=== PATIENT | female | born 1950 | race Caucasian/White ===

== ENCOUNTER 2021-03-05 20:10 | Inpatient (IN) | payer MEDICARE, BC ==
[~2021-03-05] VITALS: Ht 162.6 cm; Wt 61.2 kg
--- NOTE | 2021-03-05 20:15 | NUR ---
PT BIB [facility] FROM HOME C/O ABD PAIN AFTER RECIEIVING BOOSTER SHOT FOR COVID VACCINE 2 DAYS AGO. A.SO C/O N/V 2 HRS SKETCHER WITH 10 EPSIODES OF VOMITTING. ZOFRAN PO GIVEN BY PARAMEDICS. A/O X4, NO SOB OR LABORED BREATHING, AFEBRILE. DENIES CP/PRESSURE. DR. TRIPP AT BEDSIDE, MSE IN PROGRESS.
[2021-03-05] MEDS ORDERED: IV NORMAL SALINE 1000 ML BAG IV ONE (20:30)
[2021-03-05] MEDS ORDERED: HYDROMORPHONE 1 MG/1 ML DISP.SYRIN IV ONE (20:30)
[2021-03-05] MEDS ORDERED: ONDANSETRON 4 MG/2 ML VIAL IV ONE (20:30)
--- NOTE | 2021-03-05 20:34 | NUR ---
XRAY AT BEDSIDE.
[2021-03-05 20:37] LABS: HEMATOCRIT 42.7 % (31.2-41.9); MEAN CORPUSCULAR HEMOGLOBIN 29.6 uug (24.7-32.8); MEAN CORPUSCULAR VOLUME 87.3 fL (75.5-95.3); PLATELET COUNT (AUTO) 232 K/uL (179-408)
[2021-03-05] MEDS ORDERED: HYDROMORPHONE 1 MG/1 ML DISP.SYRIN ONE (20:38)
[2021-03-05] MEDS ORDERED: ONDANSETRON 4 MG/2 ML VIAL ONE (20:38)
[2021-03-05 21:01] LABS: BILIRUBIN,DIRECT 0.1 mg/dL (0.0-0.2); BILIRUBIN,TOTAL 0.6 mg/dL (0.2-1.0); TOTAL PROTEIN, SERUM 7.3 g/dL (6.4-8.2)
[2021-03-05] MEDS ORDERED: LORAZEPAM 2 MG/1 ML VIAL ONE (21:09)
[2021-03-05] MEDS ORDERED: IOHEXOL 300MG/ML 100 ML INFUS..BTL ONE (21:12)
[2021-03-05] MEDS ORDERED: SWABABLE VALVE TRANSFER SET EA MC ONE (21:12)
[2021-03-05] MEDS ORDERED: IV NORMAL SALINE 250 ML IV ONE (21:12)
[2021-03-05] MEDS ORDERED: LORAZEPAM 2 MG/1 ML VIAL IV ONE (21:15)
--- NOTE | 2021-03-05 21:16 | NUR ---
PT TAKEN DOWN FOR CT.
--- NOTE | 2021-03-05 21:33 | NUR ---
PT RETURNED FROM CT STABLE CONDITION.
[2021-03-05] MEDS ORDERED: fluoxetine PO (21:43)
[2021-03-05] MEDS ORDERED: OLME40TA12 PO (21:43)
[2021-03-05] MEDS ORDERED: PIPERACILLIN SODIUM/TAZOBACTAM 3.375 G in IV DEXTROSE 5% 50 ML IV ONE (22:00)
[2021-03-05] MEDS ORDERED: PIPERACILLIN/TAZOBACTAM/D5W 50 ML IV ONE (22:06)
--- NOTE | 2021-03-05 22:06 | NUR ---
CALLED DR. ANTWON COATES LAMINATOR [employer] SURGEON, SPOKE WITH DR. TRIPP.
--- NOTE | 2021-03-05 22:45 | NUR ---
US (ISRRAEL) AT BEDSIDE.
--- NOTE | 2021-03-05 22:56 | NUR ---
CALLED [facility] FOR PANEL CALL, PAGED DR. APPLE.
[2021-03-05] MEDS ORDERED: MORPHINE SULFATE 2 MG/1 ML DISP.SYRIN IV PRN (23:15)
[2021-03-05] MEDS ORDERED: Z GUARD REMEDY PASTE 57 GM TUBE TOP PRN (23:15)
[2021-03-05] MEDS ORDERED: MAGNESIUM HYDROXIDE 30 ML LIQUID UDC PO PRN (23:15)
--- NOTE | 2021-03-05 23:45 | NUR ---
GAVE REPORT TO JUVENCIO, MED SURG FLOOR.
--- NOTE | 2021-03-05 23:59 | NUR ---
Pt. admitted to Med Surg Room 329B , under care of ROCÍO Rosario. Dx: appendicitis Belongs List completed
--- NOTE | 2021-03-06 00:12 | NUR ---
Admitted patient in Med-surg unit from Er via [facility] accompanied by staff nurse. Dx of acute appendicitis.Patient AALO4.No s/s of distress noted. On Ra.Iv on left AC patent and intact.Patient has h/x of left breast CA s/p LF mastectomy 10 yrs ago per patient. According to ER nurse , ok to adm medication on the left IV .Patient aware Per patient as long as no lab draw done on the left arm.Patient NPO. Adm IVF.Tolerated well. VSs .Will continue to monitor.
[2021-03-06 00:21] VITALS: BP 119/49
[2021-03-06] MEDS: IV D5 1/2 NS 1000 ML 1,000 ML IV PRN (00:54)
[2021-03-06] MEDS: ONDANSETRON 4 MG/2 ML VIAL IV PRN ×3 (01:10→17:23)
[2021-03-06] MEDS ORDERED: PIPERACILLIN SODIUM/TAZOBACTAM 3.375 G in IV DEXTROSE 5% 50 ML IV SCH ×2 (04:00→12:00)
[2021-03-06] MEDS ORDERED: PIPERACILLIN/TAZOBACTAM/D5W 50 ML IV ONE (04:12)
[2021-03-06 04:30] VITALS: BP 107/48
[2021-03-06 07:24] LABS: HEMATOCRIT 38.3 % (31.2-41.9); MEAN CORPUSCULAR HEMOGLOBIN 29.9 uug (24.7-32.8); MEAN CORPUSCULAR VOLUME 89.1 fL (75.5-95.3); PLATELET COUNT (AUTO) 211 K/uL (179-408)
--- NOTE | 2021-03-06 07:30 | NUR ---
Kept pt NPO for possible surgery today. Pt agreeable with staying NPO. IVF infusing as ordered. Call light is within reach. PT states that she gets pain on right lower quadrant. ABD bowel sounds hypoactive.
[2021-03-06 07:48] LABS: PHOSPHOROUS 3.6 mg/dL (2.5-4.9)
[2021-03-06] MEDS: PANTOPRAZOLE SODIUM 40 MG VIAL IV SCH (08:11)
[2021-03-06] MEDS: MORPHINE SULFATE 4 MG/1 ML DISP.SYRIN IV PRN ×2 (08:18→19:57)
[2021-03-06 08:39] LABS: THYROID STIMULATING HORMONE 1.004 mIU/mL (0.358-3.740)
[2021-03-06 08:53] VITALS: BP 109/50
[2021-03-06 09:05] LABS: *BILIRUBIN,URIN NEGATIVE (NEGATIVE); *BLOOD, URINE NEGATIVE (NEGATIVE); *CLARITY,URINE SLIGHTLY CLOUDY (CLEAR); *COLOR,URINE YELLOW (YELLOW); *KETONES,URINE TRACE (NEGATIVE); *UROBILINOGEN,URINE 0.2 E.U./dl (NORMAL); LEUKOCYTE ESTERASE ,URINE NEGATIVE (NEGATIVE); NITRITE, URINE NEGATIVE (NEGATIVE); UGLUCOSE NEGATIVE (NEGATIVE)
[2021-03-06] MEDS ORDERED: POLYMYXIN B SULFATE 500,000 UNITS VIAL ONE (10:01)
[2021-03-06] MEDS ORDERED: LIDOCAINE HCL 1% 20 ML VIAL ONE (10:01)
[2021-03-06] MEDS ORDERED: BUPIVACAINE/EPI PF 0.25% 30 ML VIAL ONE (10:02)
--- NOTE | 2021-03-06 10:30 | NUR ---
Preop checklist done, consent signed, and surgery here to roll picker patient.
[2021-03-06] MEDS ORDERED: FENTANYL CITRATE 250 MCG/5 ML AMPUL ONE (10:36)
[2021-03-06] MEDS ORDERED: MIDAZOLAM HCL 2 MG/2 ML VIAL ONE (10:36)
[2021-03-06] MEDS ORDERED: ROCURONIUM BROMIDE 50 MG/5 ML VIAL ONE (10:37)
[2021-03-06] MEDS ORDERED: HYDROMORPHONE 2 MG/1 ML DISP.SYRIN ONE (10:37)
[2021-03-06 13:17] VITALS: BP 105/48
[2021-03-06] MEDS: PIPERACILLIN SODIUM/TAZOBACTAM 3.375 G in IV DEXTROSE 5% 100 ML IV SCH ×2 (13:20→19:57)
--- NOTE | 2021-03-06 13:30 | NUR ---
Received pt back from surgery/recovery. Pt awake alert and oriented. Pt able to wiggle toes and feel sensation on feet. Pt denies any c/o pain. ABD x 3 small laparoscopic incision with steri strips. Ice pack on ABD. IV on right FA #18 with IVF as ordered. Bowel sounds hypoactive. Encouraged pt to use IS x 10 WA. PT verbalized understanding. Call light is within reach.
[2021-03-06 14:11] LABS: BACTERIA,URINE FEW /HPF (NONE SEEN); RBC,URINE 0-3 /HPF (0-3); SQUAMOUS EPITHELIAL CELL,UR FEW /HPF (NONE SEEN); WBC,URINE 0-3 /HPF (0-3)
[2021-03-06 15:28] VITALS: BP 108/55
[2021-03-06] MEDS ORDERED: DEXAMETHASONE SOD PHOSPHATE 4 MG INJ IV ONE (16:59)
[2021-03-06] MEDS ORDERED: GLYCOPYRROLATE 0.2 MG/ML VIAL MC ONE (16:59)
[2021-03-06] MEDS ORDERED: PROPOFOL 200 MG/20 ML BOTTLE IV ONE (16:59)
[2021-03-06] MEDS ORDERED: METOCLOPRAMIDE HCL 10 MG/2 ML VIAL IV ONE (16:59)
[2021-03-06] MEDS ORDERED: CEFAZOLIN 1 G VIAL MC ONE (16:59)
[2021-03-06] MEDS ORDERED: ONDANSETRON 4 MG/2 ML VIAL IV ONE (16:59)
[2021-03-06] MEDS ORDERED: NEOSTIGMINE METHYLSULFATE 10 MG/10 ML VIAL IM ONE (16:59)
[2021-03-06] MEDS ORDERED: SEVOFLURANE 250 ML BOTTLE IH ONE (16:59)
[2021-03-06] MEDS ORDERED: LIDOCAINE-MPF 2% 5 ML VIAL MC ONE (16:59)
[2021-03-06] MEDS ORDERED: VECURONIUM BROMIDE 10 MG VIAL IV ONE (16:59)
--- NOTE | 2021-03-06 22:00 | NUR ---
Received patient in bed, alert and oriented. Able make needs known. Denies passing gas at this time. IV intact. Handoff report to Karri URIBE.
[2021-03-06 22:15] VITALS: BP 108/49
--- NOTE | 2021-03-06 23:00 | NUR ---
assumed care from Nurse Drummond; agree with previous assessment.
[2021-03-07] MEDS: IV D5 1/2 NS 1000 ML 1,000 ML IV PRN (01:00)
[2021-03-07] MEDS: ONDANSETRON 4 MG/2 ML VIAL IV PRN ×4 (01:15→22:29)
[2021-03-07] MEDS: MORPHINE SULFATE 4 MG/1 ML DISP.SYRIN IV PRN (01:15)
[2021-03-07 04:15] VITALS: BP 105/52
[2021-03-07] MEDS: PIPERACILLIN SODIUM/TAZOBACTAM 3.375 G in IV DEXTROSE 5% 100 ML IV SCH ×3 (04:15→22:30)
[2021-03-07] MEDS: ACETAMINOPHEN 325 MG TABLET PO PRN ×3 (05:40→19:53)
--- NOTE | 2021-03-07 06:30 | NUR ---
Patient rested well in between care; pain management with Morphine AND TYLENOL; ZOFRAN FOR NAUSEA; ONGOING IVF; ANTIBIOTICS; ASSISTED TO BATHROOM'; pt reported she passed gas; continue to monitor.
--- NOTE | 2021-03-07 06:47 | NUR ---
referred to DR Gonzalez for resumption of Prozac and klonopin 0.5 mg q8 prn; awaiting call back.
--- NOTE | 2021-03-07 08:30 | NUR ---
patient received laying in bed in no apparent distress, states feeling nauseous prn zofran administered. patient denies pain at this time, request ice pack to place around incision area, ice pack given to patient. patient with side rails up x2, call light within reach. v/s wnl.
[2021-03-07] MEDS: PANTOPRAZOLE SODIUM 40 MG VIAL IV SCH (08:32)
[2021-03-07] MEDS ORDERED: CLONAZEPAM 0.5 MG TABLET PO PRN (09:30)
[2021-03-07] MEDS ORDERED: MORPHINE SULFATE 2 MG/1 ML DISP.SYRIN IV PRN (10:30)
[2021-03-07] MEDS: FLUOXETINE HCL 20 MG CAPSULE PO SCH (10:32)
[2021-03-07] MEDS ORDERED: diphenhydrAMINE 50 MG/1 ML VIAL IV PRN (11:30)
[2021-03-07 12:00] VITALS: BP 116/50
--- NOTE | 2021-03-07 13:15 | NUR ---
patient ambulated with physical therapy. tolerated well, denies pain at this time, rr even and non-labored, no episodes of shortness of breath.
[2021-03-07 14:05] LABS: HEMATOCRIT 36.3 % (31.2-41.9); MEAN CORPUSCULAR HEMOGLOBIN 29.7 uug (24.7-32.8); MEAN CORPUSCULAR VOLUME 90.3 fL (75.5-95.3); PLATELET COUNT (AUTO) 194 K/uL (179-408)
[2021-03-07 16:11] VITALS: BP 127/50
--- NOTE | 2021-03-07 16:25 | NUR ---
patient with c/o nausea, prn zofran administered, per patient my left arm appears a bit swollen. IV site to left hand assessed, iv site in place and patent, no resistance noted, no redness to surrounding area. Ice given to patient for slight swelling to left f.a. per patient " it already feels a lot better."
--- NOTE | 2021-03-07 17:54 | NUR ---
patient ambulating in [place] with fww, non-skid socks in place for safety. reassessed left f/a, arms appears less swollen. per patient "it looks so much better." patient denies pain at this time. frequent monitoring for safety.
--- NOTE | 2021-03-07 19:00 | NUR ---
RECD PT IN BED, ALERT AND ORIENTED,NEEDS ATTENDED TO,GOOD BOWEL SOUNDS,ABLE TO GO TO BR, KEPT DRY AND CLEAN,MEDICATED WITH TYLENOL 650 MG FOR ABDOMINAL PAIN, 3 LAP SITES WITH STRE STRIPS IN PLACE.IV SITE ON RIGHT WRIST INFILTRATED, , NO SIGNS OF BLEEDING NOTED.NEW IV SITE STARTED ON RIGHT HAND G 22.
[2021-03-07 20:09] VITALS: BP 128/55
[2021-03-07] MEDS ORDERED: HYDROMORPHONE 1 MG/1 ML DISP.SYRIN IV ONE (23:30)
[2021-03-08 04:09] VITALS: BP 114/64
--- NOTE | 2021-03-08 05:02 | NUR ---
SLEPT INTERMITTENTLY, CALL LITE W/I REACH.
[2021-03-08] MEDS: PIPERACILLIN SODIUM/TAZOBACTAM 3.375 G in IV DEXTROSE 5% 100 ML IV SCH ×2 (05:38→12:22)
[2021-03-08 06:31] LABS: HEMATOCRIT 34.9 % (31.2-41.9); MEAN CORPUSCULAR HEMOGLOBIN 29.5 uug (24.7-32.8); PLATELET COUNT (AUTO) 197 K/uL (179-408)
[2021-03-08 06:43] LABS: CREATININE 0.7 mg/dL (0.6-1.3); POTASSIUM 3.4 mmol/L (3.5-5.1)
[2021-03-08] MEDS: FLUOXETINE HCL 20 MG CAPSULE PO SCH (09:01)
[2021-03-08] MEDS: PANTOPRAZOLE SODIUM 40 MG VIAL IV SCH (09:01)
[2021-03-08] MEDS: POTASSIUM CHLORIDE 50 ML IV SCH ×2 (10:44→12:22)
[2021-03-08] MEDS: ACETAMINOPHEN 325 MG TABLET PO PRN (10:51)
[2021-03-08] MEDS: ONDANSETRON 4 MG/2 ML VIAL IV PRN (10:51)
--- NOTE | 2021-03-08 11:00 | NUR ---
patient ambulating w/o difficulty, stable gait. patient with bowel sounds to all quadrants, and patient states she is passing gas.
[2021-03-08 11:38] VITALS: BP 132/60
[2021-03-08] MEDS ORDERED: LOSARTAN POTASSIUM 50 MG TABLET PO SCH (14:00)
[2021-03-08] MEDS ORDERED: ONDA4TAB5 PO (14:54)
[2021-03-08] MEDS ORDERED: METR500T PO (14:54)
[2021-03-08] MEDS ORDERED: CIPR-262 PO (14:54)
[2021-03-08 15:40] VITALS: BP 143/66
--- NOTE | 2021-03-08 16:50 | NUR ---
IV site removed minimal bleeding to site, valuables given back to patient and form signed. Pharmacy e-prescription verified to have been received at [facility]. patient states understanding of pending discharge and of new medication regimen of ciprofloxacin, flagyl and zofran.
--- NOTE | 2021-03-08 17:00 | NUR ---
patient discharged, discharge instructions given to patient, orders to follow up with dr isbell w/n 2 weeks, also to f/u with primary physician within 1 week. Babs SOL in unit speaking to patient. All questions answered. patient with incision sites clean and dry, with no s/s infection at the time. bowel sounds active in all 4 quadrants. vaccines to be f/u with primary physician.
[2021-03-09] MEDS ORDERED: Medication Not On Formulary EA (Olmesartan Medoxomil (Benicar) 40 MG) PO SCH (09:00)
[2021-03-09] MEDS ORDERED: FLUOXETINE 20 MG PO SCH (09:00)
== END 2021-03-08 17:00 | disposition home or self-care (01) | DRG 339 ==
LOC: ER 20:13 → MEDSURG3 23:46
PROVIDERS: ADMIT Nurse Practitioner Acute Care; ATTEND Registered Nurse
PROC: 0DTJ4ZZ Resection of Appendix, Percutaneous Endoscopic Approach (ICD-10-PCS; principal; 2021-03-06)
PROC: 0WQF4ZZ Repair Abdominal Wall, Percutaneous Endoscopic Approach (ICD-10-PCS; 2021-03-06)
DX: K35.32 Acute appendicitis with perforation, localized peritonitis, and gangrene, without abscess (principal); K80.00 Calculus of gallbladder with acute cholecystitis without obstruction; I10 Essential (primary) hypertension; K43.9 Ventral hernia without obstruction or gangrene; F41.9 Anxiety disorder, unspecified; Z90.12 Acquired absence of left breast and nipple; Z85.3 Personal history of malignant neoplasm of breast; D72.829 Elevated white blood cell count, unspecified; M16.11 Unilateral primary osteoarthritis, right hip; Z20.822 Contact with and (suspected) exposure to COVID-19
CPT/HCPCS: 36415; 70030-TC; 71045; 83690; 84100; 84443; 85025; 85730; 93005; 97161; A4663; C9113; G0378; J0690; J1100; J1170; J2060; J2250; J2270; J2405; J2543; J2765; J3010; J3480; J3490; J7030; J7040; J7050; J7060; Q9967